=== PATIENT | female | born 1965 | race Caucasian/White ===

== ENCOUNTER 2018-11-28 09:15 | Observation (INO) ==
[2018-11-28 14:00] LABS: Basophils % 0.6 % (0.1-2.0); Eosinophils # 0.5 K/mm3 (0.0-0.4); Eosinophils % 6.1 % (0.1-12.0); Hematocrit 40.6 % (37.0-47.0); Hemoglobin 13.7 g/dL (12.2-16.2); Lymphocytes # 2.6 K/mm3 (0.7-4.5); Lymphocytes % 34.5 % (10-50); Mean Corpuscular HGB Conc 33.8 g/dL (31.8-35.4); Mean Corpuscular Hemoglobin 31.6 pg (27.0-31.2); Mean Corpuscular Volume 93.5 fl (81-99); Monocytes # 0.4 K/mm3 (0.1-1.0); Monocytes % 5.2 % (1.7-9.3); Neutrophils % 53.7 % (37.0-80.0); Platelet Count 204 K/mm3 (142-424); Red Blood Count 4.34 M/mm3 (4.20-5.40); Red Cell Distribution Width 14.1 % (11.5-17.5); White Blood Count 7.4 K/mm3 (4.8-10.8)
[2018-11-28 14:29] LABS: Cholesterol 277 mg/dL (140-200); HDL Cholesterol 46 mg/dL (29-89); LDL Cholesterol 174 mg/dL (0-130); Triglycerides 284 mg/dL (30-200); VLDL Cholesterol 57 mg/dL (0-40)
--- NOTE | 2018-11-28 14:30 | Pharmacy Consult Notes ---
[facility] Pharmacy VTE Monitoring - Patient Demographics Admission date: 11/28/18 Report Date: 11/28/18 Time: 14:30 Allergies/Adverse Reactions: Patient Allergies adenosine Allergy (Mild, Verified 11/28/18 13:18) UNKNOWN amoxicillin [From Augmentin] Allergy (Mild, Verified 11/28/18 13:18) UNKNOWN ciprofloxacin [From Cipro] Allergy (Mild, Verified 11/28/18 13:18) UNKNOWN clarithromycin [From Biaxin] Allergy (Mild, Verified 11/28/18 13:18) UNKNOWN clavulanic acid [From Augmentin] Allergy (Mild, Verified 11/28/18 13:18) UNKNOWN codeine Allergy (Mild, Verified 11/28/18 13:18) UNKNOWN erythromycin base [From Erythrocin] Allergy (Mild, Verified 11/28/18 13:18) UNKNOWN latex Allergy (Mild, Verified 11/28/18 13:18) UNKNOWN Sulfa (Sulfonamide Antibiotics) Allergy (Mild, Verified 11/28/18 13:18) UNKNOWN nitrofurantoin [From Macrobid] Allergy (Unknown, Verified 11/28/18 13:18) UNKNOWN Height: 1.6 m Weight: 115.354 kg - VTE Risk Labs: VTE Related Lab Results Hgb 13.7 g/dL (12.2-16.2) 11/28/18 13:30 Hct 40.6 % (37.0-47.0) 11/28/18 13:30 Plt Count 204 K/mm3 (142-424) 11/28/18 13:30 VTE Score: 4 VTE Risk Level: Low Risk - Prophylaxis VTE Prophylaxis Ordered?: Yes Types of VTE Prophylaxis: TEDS Knee High Location of Applied Device: Bilateral Lower Extremeties - VTE Diagnosis Confirmed Treatment or plan recommended: Continue Current Treatment
[2018-11-28 14:32] LABS: Alanine Aminotransferase 30 U/L (12-78); Albumin Level 3.6 gm/dL (3.4-5.0); Albumin/Globulin Ratio 0.7 (1.1-1.8); Alkaline Phosphatase 101 U/L (46-116); Anion Gap 15.6 mEq/L (5-15); Aspartate Amino Transferase 18 U/L (15-37); Bilirubin,Total 0.3 mg/dL (0.2-1.0); Blood Urea Nitrogen 19 mg/dL (7-18); Calcium 9.4 mg/dL (8.5-10.1); Carbon Dioxide 29 mmol/L (21.0-32.0); Chloride 99 mmol/L (98-107); Creatine Kinase 139 U/L (26-192); Free T4 (Free Thyroxine) 1.03 ng/dl (0.76-1.46); Globulin 4.9 gm/dl (1.3-3.2); Glucose 145 mg/dL (74-106); Potassium 3.6 mmoL/L (3.5-5.1); Sodium 140 mmol/L (136-145); Thyroid Stimulating Hormone 3.82 uIU/ml (0.358-3.740); Total Protein,Serum 8.5 gm/dL (6.4-8.2)
--- NOTE | 2018-11-28 16:58 | History & Physical Report ---
*Admission Date: 11/28/18 *Chief complaint: Chest pain/unstable angina *History of present illness: 53-year-old white female with past history of multiple VT E, IVC placement, pacemaker placement, CHF and coronary disease who presented to an outside hospital yesterday with a chief complaint of worsening chest pain. She was hospitalized and ruled out for myocardial infarction overnight, but because of her history of worsening angina, history of CHF with recent weight gain and worsening chest pain syndrome, she was transferred [facility] so that her cut off machine unloader, Dr. Charles Wilks, could subject her to cardiac angiogram to assess for worsening cardiac disease and ejection fraction. Currently she has complaints of occasional pain when she gets up and walks to the bathroom as well as some muscle cramping. Muscle cramping occurs in her thighs. She has no complaints of orthopnea or paroxysmal nocturnal dyspnea. 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), Transient Ischemic Attacks (TIA) Denies:: Cancer, Diabetes Mellitus Type 1, Diabetes Mellitus Type 2, MRSA *Have you ever received a pneumonia vaccine?: No *Have you received a flu vaccine this season?: No Laterality Cases: Right: Arthroscopy Shoulder, Bilateral: Arthroscopy Knee Other Surgeries: Yes: Angioplasty ([facility]- 2014), Cholecystectomy, Colonoscopy, Dilation and Curettage, EGD, Pacemaker, Sinus Surgery, Tubal Ligation, Other (cholecystectomy, green filter, left shoulder surgery, bladder mesh/sling,) Amputation: No Fractures: No - *Social History Educational Level: Completed College Smoking Status: Current every day smoker Tobacco Type: cigarettes # Packs/Day (cigarettes): 1 Alcohol Intake: never *Occupational Status:: other Housing: house Household Members: spouse *Travel in the last 8 weeks: None - Psychiatric History Expresses thoughts of harming self/others: None Suicide Plan Description: No Plan Family Hx:: Coronary Artery Disease Review of Systems - Review of Systems Review of systems:: pertinent systems reviewed and negative unless documented below - Constitutional Reports weight gain, Denies anorexia, Denies body ache(s), Denies chills, Denies weight loss - Eyes Denies blind spots, Denies blurry vision, Denies change in vision - ENT Denies abnormal hearing, Denies bleeding gums - *Cardiovascular Reports chest pain, Reports chest pain with activity, Reports shortness of breath, Reports shortness of breath with activity, Reports generalized swelling, Denies chest pain at rest, Denies leg pain with activity, Denies irregular heart rhythm - *Respiratory Denies change in phlegm color, Denies chest congestion, Denies cough, Denies excessive phlegm production - *Gastrointestinal Denies abdominal pain - *Genitourinary Denies abnormal periods - *Musculoskeletal Denies abnormal walking, Denies joint pain, Denies limited joint movement - Integumentary/Breasts Denies acne, Denies hair loss - *Neurologic Denies abnormal walking, Denies lack of coordination, Denies loss of vision - Psychiatric Denies abnormal sleep pattern Meds Home Medications Medication Instructions Recorded Confirmed Type albuterol sulfate 0.63 mg/3 mL 1.5 mg INHALATION Q4-6H ml 11/04/17 11/28/18 History solution for nebulization gabapentin 800 mg tablet 800 mg PO QID tab 11/04/17 11/28/18 History levetiracetam 1,000 mg tablet 1,500 mg PO Q12H 11/04/17 11/28/18 History cyanocobalamin (vit B-12) 1,000 1,000 mcg PO DAILY 05/27/18 11/28/18 History mcg tablet ergocalciferol (vitamin D2) 50,000 50,000 unit PO QWEEK 05/27/18 11/28/18 History unit capsule venlafaxine ER 150 mg 150 mg PO DAILY 05/27/18 11/28/18 History capsule,extended release 24 hr Apixaban [Eliquis] 5 mg PO BID 11/28/18 11/28/18 History Famotidine [Acid Body Joiner] 20 mg PO DAILY 11/28/18 11/28/18 History Nebivolol HCl [Bystolic] 5 mg PO QDAY 11/28/18 11/28/18 History Spironolactone 100 mg PO DAILY 11/28/18 11/28/18 History Torsemide 50 mg PO DAILY 11/28/18 11/28/18 History Allergies Allergy/AdvReac Type Severity Reaction Status Date / Time adenosine Allergy Mild UNKNOWN Verified 11/28/18 13:18 amoxicillin [From Augmentin] Allergy Mild UNKNOWN Verified 11/28/18 13:18 ciprofloxacin [From Cipro] Allergy Mild UNKNOWN Verified 11/28/18 13:18 clarithromycin [From Biaxin] Allergy Mild UNKNOWN Verified 11/28/18 13:18 clavulanic acid Allergy Mild UNKNOWN Verified 11/28/18 13:18 [From Augmentin] codeine Allergy Mild UNKNOWN Verified 11/28/18 13:18 erythromycin base Allergy Mild UNKNOWN Verified 11/28/18 13:18 [From Erythrocin] latex Allergy Mild UNKNOWN Verified 11/28/18 13:18 Sulfa (Sulfonamide Allergy Mild UNKNOWN Verified 11/28/18 13:18 Antibiotics) nitrofurantoin Allergy Unknown UNKNOWN Verified 11/28/18 13:18 [From Macrobid] Exam Vital signs and Labs for Last 24 Hours: Temp Pulse Resp BP Pulse Ox 97.8 F 56 L 18 124/75 95 11/28/18 16:00 11/28/18 16:00 11/28/18 16:00 11/28/18 16:00 11/28/18 16:00 Laboratory Results - last 24 hr 11/28/18 13:30: WBC 7.4, RBC 4.34, Hgb 13.7, Hct 40.6, MCV 93.5, MCH 31.6 H, MCHC 33.8, RDW 14.1, Plt Count 204, MPV 8.0, Neut % (Auto) 53.7, Lymph % (Auto) 34.5, [place] % (Auto) 5.2, Eos % (Auto) 6.1, Baso % (Auto) 0.6, Neut # (Auto) 4.0, Lymph # (Auto) 2.6, [place] # (Auto) 0.4, Eos # (Auto) 0.5 H, Baso # (Auto) 0.0 11/28/18 13:30: Sodium 140, Potassium 3.6, Chloride 99, Carbon Dioxide 29, Anion Gap 15.6 H, BUN 19 H, Creatinine 0.91, Estimated Creat Clear 61, Estimated GFR 65, Est GFR ( Amer) 79, Glucose 145 H, Calcium 9.4, Total Bilirubin 0.3, AST 18, ALT 30, Alkaline Phosphatase 101, Total Creatine Kinase 139, CK-MB (CK- 2) 1.0, CK-MB (CK-2) Rel Index 0.7, Troponin I < 0.02, Total Protein 8.5 H, Albumin 3.6, Globulin 4.9 H, Albumin/Globulin Ratio 0.7 L, TSH 3.82 H, Free T4 1.03 11/28/18 13:30: Magnesium 1.8, Troponin I < 0.02, Triglycerides 284 H, Cholesterol 277 H, LDL Cholesterol 174 H, VLDL Cholesterol 57 H, HDL Cholesterol 46, Cholesterol/HDL Ratio 6.0 H 11/28/18 13:30: B-Natriuretic Peptide 16 I & O for Last 24 hours: Intake & Output 11/26/18 11/27/18 11/28/18 11/29/18 11:59 11:59 11:59 11:59 Weight 254 lb 5 oz Microbiology Reports for the Last 24 Hours: Microbiology 11/28/18 13:40 Aspirate - Central Gram Stain - Final Narrative: Patient is morbidly obese. Alert, oriented x3. Very engaged with her medical history. Oropharynx moist and clear. No JVD. Able to move her neck well. No cranial nerve deficits. Lungs have good air movement. Heart rate regular, pacemaker site is normal- appearing. Port-A-Cath site in the right upper chest wall also without evidence of infection. Abdomen soft and nontender. Patient complains of cramping and "charley horses" in the right thigh during the exam but is able to move her extremities well without symmetric neurologic deficits. Trace ankle edema. No cord formation of the calves. Good distal pulses and perfusion. Assessment and Plan (1) Unstable angina Current visit: Yes Status: Acute Category: Medical Code(s): I20.0 - Unstable angina Agree with evaluation for left heart cath given recurrent symptoms (2) Diastolic heart failure Current visit: No Status: Chronic Qualifiers: Heart failure chronicity: acute on chronic Qualified Code(s): I50.33 - Acute on chronic diastolic (congestive) heart failure Category: Medical Code(s): I50.30 - Unspecified diastolic (congestive) heart failure Currently euvolemic. Assess ejection fraction with heart cath (3) History of pulmonary embolus (PE) Current visit: No Status: Chronic Category: Medical Code(s): Z86.711 - Personal history of pulmonary embolism Hold Eliquis. Lovenox injections subcu. (4) Morbid obesity Current visit: No Status: Chronic Category: Medical Code(s): E66.01 - Morbid (severe) obesity due to excess calories Complicates all aspects of her care
[2018-11-29 07:06] LABS: Basophils # 0.1 K/mm3 (0-0.2); Basophils % 0.7 % (0.1-2.0); Eosinophils # 0.5 K/mm3 (0.0-0.4); Eosinophils % 5.2 % (0.1-12.0); Hematocrit 42.7 % (37.0-47.0); Hemoglobin 14.4 g/dL (12.2-16.2); Lymphocytes # 3.1 K/mm3 (0.7-4.5); Lymphocytes % 33.6 % (10-50); Mean Corpuscular HGB Conc 33.9 g/dL (31.8-35.4); Mean Corpuscular Hemoglobin 31.3 pg (27.0-31.2); Mean Corpuscular Volume 92.4 fl (81-99); Mean Platelet Volume 7.9 fl (7.4-10.4); Monocytes # 0.5 K/mm3 (0.1-1.0); Monocytes % 4.9 % (1.7-9.3); Neutrophils # 5.2 K/mm3 (1.8-7.8); Neutrophils % 55.5 % (37.0-80.0); Platelet Count 217 K/mm3 (142-424); Red Blood Count 4.62 M/mm3 (4.20-5.40); Red Cell Distribution Width 14.1 % (11.5-17.5); White Blood Count 9.3 K/mm3 (4.8-10.8)
[2018-11-29 07:08] LABS: Anion Gap 16.6 mEq/L (5-15); Calcium 9.2 mg/dL (8.5-10.1); Potassium 3.6 mmoL/L (3.5-5.1)
--- NOTE | 2018-11-29 08:03 | Progress Note ---
Internal Medicine - PN: Subj *Date: 11/29/18 *Time: 08:01 Interval history: No episodes of chest pain overnight. Some muscle cramping. Exam Vital signs and Labs for Last 24 Hours: Temp Pulse Resp BP Pulse Ox 98.1 F 70 15 111/71 95 11/29/18 07:25 11/29/18 07:25 11/29/18 07:25 11/29/18 07:25 11/29/18 07:25 Laboratory Results - last 24 hr 11/28/18 13:30: WBC 7.4, RBC 4.34, Hgb 13.7, Hct 40.6, MCV 93.5, MCH 31.6 H, MCHC 33.8, RDW 14.1, Plt Count 204, MPV 8.0, Neut % (Auto) 53.7, Lymph % (Auto) 34.5, [place] % (Auto) 5.2, Eos % (Auto) 6.1, Baso % (Auto) 0.6, Neut # (Auto) 4.0, Lymph # (Auto) 2.6, [place] # (Auto) 0.4, Eos # (Auto) 0.5 H, Baso # (Auto) 0.0 11/28/18 13:30: Sodium 140, Potassium 3.6, Chloride 99, Carbon Dioxide 29, Anion Gap 15.6 H, BUN 19 H, Creatinine 0.91, Estimated Creat Clear 61, Estimated GFR 65, Est GFR ( Amer) 79, Glucose 145 H, Calcium 9.4, Total Bilirubin 0.3, AST 18, ALT 30, Alkaline Phosphatase 101, Total Creatine Kinase 139, CK-MB (CK- 2) 1.0, CK-MB (CK-2) Rel Index 0.7, Troponin I < 0.02, Total Protein 8.5 H, Albumin 3.6, Globulin 4.9 H, Albumin/Globulin Ratio 0.7 L, TSH 3.82 H, Free T4 1.03 11/28/18 13:30: Magnesium 1.8, Troponin I < 0.02, Triglycerides 284 H, Cholesterol 277 H, LDL Cholesterol 174 H, VLDL Cholesterol 57 H, HDL Cholesterol 46, Cholesterol/HDL Ratio 6.0 H 11/28/18 13:30: B-Natriuretic Peptide 16 11/28/18 19:15: Troponin I < 0.02 11/29/18 06:45: WBC 9.3 D, RBC 4.62, Hgb 14.4, Hct 42.7, MCV 92.4, MCH 31.3 H, MCHC 33.9, RDW 14.1, Plt Count 217, MPV 7.9, Neut % (Auto) 55.5, Lymph % (Auto) 33.6, [place] % (Auto) 4.9, Eos % (Auto) 5.2, Baso % (Auto) 0.7, Neut # (Auto) 5.2, Lymph # (Auto) 3.1, [place] # (Auto) 0.5, Eos # (Auto) 0.5 H, Baso # (Auto) 0.1 11/29/18 06:45: Sodium 137, Potassium 3.6, Chloride 96 L, Carbon Dioxide 28, Anion Gap 16.6 H, BUN 18, Creatinine 0.93, Estimated Creat Clear 59, Estimated GFR 64, Est GFR ( Amer) 77, Glucose 121 H, Calcium 9.2 I & O for Last 24 hours: Intake & Output 11/26/18 11/27/18 11/28/18 11/29/18 11:59 11:59 11:59 11:59 Intake Total 340 / 340 Balance 340 / 340 Weight 254 lb 5 oz Microbiology Reports for the Last 24 Hours: Microbiology 11/28/18 13:40 Aspirate - Central Gram Stain - Final Narrative: Lungs have good air movement, heart rate regular. Abdomen soft. Patient is alert. Awake. Sitting on the side of the bed brushing her daughter's hair. Assessment and Plan (1) Unstable angina Current visit: Yes Status: Acute Category: Medical Code(s): I20.0 - Unstable angina (2) Diastolic heart failure Current visit: No Status: Chronic Qualifiers: Heart failure chronicity: acute on chronic Qualified Code(s): I50.33 - Acute on chronic diastolic (congestive) heart failure Category: Medical Code(s): I50.30 - Unspecified diastolic (congestive) heart failure (3) History of pulmonary embolus (PE) Current visit: No Status: Chronic Category: Medical Code(s): Z86.711 - Personal history of pulmonary embolism (4) Morbid obesity Current visit: No Status: Chronic Category: Medical Code(s): E66.01 - Morbid (severe) obesity due to excess calories - Assessment and plan all Dx Assessment and Plan for all problems:: Left heart cath today. Probably discharge home and less significant lesions noted.
--- NOTE | 2018-11-29 11:49 | Consult Report ---
History of Present Illness Consult date: 11/29/18 (at 1015) Requesting physician: Garcia Herrera Consult reason: chest pain Chief complaint: Chest pain History of present illness: This is a 53-year-old female who was admitted to the hospital with complaints of chest to an outlying hospital, [facility], for the chest pain. The patient was then transferred here to [facility] for further cardiac workup. 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 The patient has normal coronary arteries. She states that she was having chest pain and because of her worsening angina she went to the hospital. She states that this was a pressure sensation and was occurring at rest and with exertion. She states that it continued to worsen despite her being in [facility]. She has ruled out for an [place]. She has a history of diastolic congestive heart failure so her angina was most l ikely secondary to her CHF and fluid increase. She denies any chest pain or pressure this morning. She states that she is still short of breath and still having edema in her lower extremities. She denies any fever, chills, nausea, vomiting, diarrhea. The patient says that she is having orthopnea but when I walk into the room she is lying flat in bed. 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), Transient Ischemic Attacks (TIA) Denies:: Cancer, Diabetes Mellitus Type 1, Diabetes Mellitus Type 2, MRSA *Have you ever received a pneumonia vaccine?: No *Have you received a flu vaccine this season?: No Laterality Cases: Right: Arthroscopy Shoulder, Bilateral: Arthroscopy Knee Other Surgeries: Yes: Angioplasty ([facility]- 2015), Cholecystectomy, Colonoscopy, D ilation and Curettage, EGD, Pacemaker, Sinus Surgery, Tubal Ligation, Other (cholecystectomy, green filter, left shoulder surgery, bladder mesh/sling,) Amputation: No Fractures: No - *Social History Educational Level: Completed College Smoking Status: Current every day smoker Tobacco Type: cigarettes # Packs/Day (cigarettes): 1 Alcohol Intake: never *Occupational Status:: other Housing: house Household Members: spouse *Travel in the last 8 weeks: None - Psychiatric History Expresses thoughts of harming self/others: None Suicide Plan Description: No Plan Family Hx:: Coronary Artery Disease Meds Home Medications Medication Instructions Recorded Confirmed Type albuterol sulfate 0.63 mg/3 mL 3 ml INHALATION Q4-6H ml 11/04/17 11/29/18 History solution for nebulization gabapentin 800 mg tablet 800 mg PO QID tab 11/04/17 11/28/18 History levetiracetam 1,000 mg tablet 1,500 mg PO BID 11/04/17 11/29/18 History cyanocobalamin (vit B-12) 1,000 1,000 mcg PO DAILY 05/27/18 11/28/18 History mcg tablet ergocalciferol (vitamin D2) 50,000 50,000 unit PO WEEKLY 05/27/18 11/29/18 History unit capsule venlafaxine ER 150 mg 150 mg PO HS 05/27/18 11/29/18 History capsule,extended release 24 hr Apixaban [Eliquis] 5 mg PO BID 11/28/18 11/28/18 History Famotidine [Acid Irrigation Flume Layer] 20 mg PO DAILY 11/28/18 11/28/18 History Nebivolol HCl [Bystolic] 5 mg PO DAILY 11/28/18 11/29/18 History Spironolactone 100 mg PO DAILY 11/28/18 11/28/18 History Torsemide 50 mg PO DAILY 11/28/18 11/28/18 History Allergies Allergy/AdvReac Type Severity Reaction Status Date / Time adenosine Allergy Mild UNKNOWN Verified 11/28/18 13:18 amoxicillin [From Augmentin] Allergy Mild UNKNOWN Verified 11/28/18 13:18 ciprofloxacin [From Cipro] Allergy Mild UNKNOWN Verified 11/28/18 13:18 clarithromycin [From Biaxin] Allergy Mild UNKNOWN Verified 11/28/18 13:18 clavulanic acid Allergy Mild UNKNOWN Verified 11/28/18 13:18 [From Augmentin] codeine Allergy Mild UNKNOWN Verified 11/28/18 13:18 erythromycin base Allergy Mild UNKNOWN Verified 11/28/18 13:18 [From Erythrocin] latex Allergy Mild UNKNOWN Verified 11/28/18 13:18 Sulfa (Sulfonamide Allergy Mild UNKNOWN Verified 11/28/18 13:18 Antibiotics) nitrofurantoin Allergy Unknown UNKNOWN Verified 11/28/18 13:18 [From Macrobid] Review of Systems - Review of Systems Review of systems:: pertinent systems reviewed and negative unless documented below - Constitutional Reports fatigue, Reports lack of energy, Reports weight gain - *Cardiovascular Reports chest pain, Reports chest pain at rest, Reports chest pain with activity, Reports shortness of breath, Reports shortness of breath with activity, Reports leg swelling, Reports shortness of breath when lying down, Reports shortness of breath causing sudden awakening - *Neurologic Denies abnormal walking, Denies abnormal hearing, Denies lack of coordination, Denies loss of vision Exam Vital signs and Labs for Last 24 Hours: Temp Pulse Resp BP Pulse Ox 98.1 F 71 15 111/71 95 11/29/18 07:25 11/29/18 08:00 11/29/18 07:25 11/29/18 07:25 11/29/18 08:00 Laboratory Results - last 24 hr 11/28/18 13:30: WBC 7.4, RBC 4.34, Hgb 13.7, Hct 40.6, MCV 93.5, MCH 31.6 H, MCHC 33.8, RDW 14.1, Plt Count 204, MPV 8.0, Neut % (Auto) 53.7, Lymph % (Auto) 34.5, Motley % (Auto) 5.2, Eos % (Auto) 6.1, Baso % (Auto) 0.6, Neut # (Auto) 4.0, Lymph # (Auto) 2.6, Motley # (Auto) 0.4, Eos # (Auto) 0.5 H, Baso # (Auto) 0.0 11/28/18 13:30: Sodium 140, Potassium 3.6, Chloride 99, Carbon Dioxide 29, Anion Gap 15.6 H, BUN 19 H, Creatinine 0.91, Estimated Creat Clear 61, Estimated GFR 65, Est GFR ( Amer) 79, Glucose 145 H, Calcium 9.4, Total Bilirubin 0.3, AST 18, ALT 30, Alkaline Phosphatase 101, Total Creatine Kinase 139, CK-MB (CK- 2) 1.0, CK-MB (CK-2) Rel Index 0.7, Troponin I < 0.02, Total Protein 8.5 H, Albumin 3.6, Globulin 4.9 H, Albumin/Globulin Ratio 0.7 L, TSH 3.82 H, Free T4 1.03 11/28/18 13:30: Magnesium 1.8, Troponin I < 0.02, Triglycerides 284 H, Cholesterol 277 H, LDL Cholesterol 174 H, VLDL Cholesterol 57 H, HDL Cholesterol 46, Cholesterol/HDL Ratio 6.0 H 11/28/18 13:30: B-Natriuretic Peptide 16 11/28/18 19:15: Troponin I < 0.02 11/29/18 06:45: WBC 9.3 D, RBC 4.62, Hgb 14.4, Hct 42.7, MCV 92.4, MCH 31.3 H, MCHC 33.9, RDW 14.1, Plt Count 217, MPV 7.9, Neut % (Auto) 55.5, Lymph % (Auto) 33.6, Motley % (Auto) 4.9, Eos % (Auto) 5.2, Baso % (Auto) 0.7, Neut # (Auto) 5.2, Lymph # (Auto) 3.1, Motley # (Auto) 0.5, Eos # (Auto) 0.5 H, Baso # (Auto) 0.1 11/29/18 06:45: Sodium 137, Potassium 3.6, Chloride 96 L, Carbon Dioxide 28, Anion Gap 16.6 H, BUN 18, Creatinine 0.93, Estimated Creat Clear 59, Estimated GFR 64, Est GFR ( Amer) 77, Glucose 121 H, Calcium 9.2 I & O for Last 24 hours: Intake & Output 11/26/18 11/27/18 11/28/18 11/29/18 23:59 23:59 23:59 23:59 Intake Total 280 / 280 60 / 60 Balance 280 / 280 60 / 60 Weight 254 lb 5 oz Microbiology Reports for the Last 24 Hours: Microbiology 11/28/18 13:40 Aspirate - Central Gram Stain - Final Narrative: Telemetry strip is sinus rhythm with a rate of 71. - Constitutional no acute distress, morbidly obese - *Routine HEENT Exam Head: Present: normocephalic, atraumatic Eye: Present: EOMI, PERRL ENT: Present: mucous membranes moist - *Routine Neck Exam Present: supple, full ROM. Absent: JVD, carotid bruit, lymphadenopathy - *Routine Respiratory Exam Present: CTA bilaterally - *Routine Cardiovascular Exam Present: RRR, Normal S1, Normal S2. Absent: murmur, gallop - *Routine Abdominal Exam Present: soft, normoactive bowel sounds. Absent: tenderness, distended - *Routine Extremities Exam Present: edema (Trace in the bilateral lower extremities), full ROM, pulses intact. Absent: cyanosis, clubbing - *Routine Skin Exam Present: intact, warm. Absent: erythema, rash - *Routine Neurological Exam Present: alert, oriented X3, CN II-XII intact. Absent: sensory deficit, motor deficit - Routine Psychiatric Exam Present: normal affect, normal thought process - Detailed Eye Exam Eyelids: Left normal inspection Assessment and Plan (1) Angina pectoris Current visit: Yes Status: Acute Category: Medical Code(s): I20.9 - Angina pectoris, unspecified (2) SOB (shortness of breath) Current visit: No Status: Acute Category: Medical Code(s): R06.02 - Shortness of breath (3) Edema Current visit: No Status: Acute Qualifiers: Edema type: localized Qualified Code(s): R60.0 - Localized edema Category: Medical Code(s): R60.9 - Edema, unspecified (4) Diastolic heart failure Current visit: No Status: Chronic Qualifiers: Heart failure chronicity: acute on chronic Qualified Code(s): I50.33 - Acute on chronic diastolic (congestive) heart failure Category: Medical Code(s): I50.30 - Unspecified diastolic (congestive) heart failure (5) History of pulmonary embolus (PE) Current visit: No Status: Chronic Category: Medical Code(s): Z86.711 - Personal history of pulmonary embolism (6) Morbid obesity Current visit: No Status: Chronic Category: Medical Code(s): E66.01 - Morbid (severe) obesity due to excess calories (7) DVT (deep venous thrombosis) Current visit: No Status: Chronic Category: Medical Code(s): I82.409 - Acute embolism and thrombosis of unspecified deep veins of unspecified lower extremity (8) Atrial fibrillation Current visit: No Status: Chronic Category: Medical Code(s): I48.91 - Unspecified atrial fibrillation (9) SHEREE (obstructive sleep apnea) Current visit: No Status: Chronic Category: Medical Code(s): G47.33 - Obstructive sleep apnea (adult) (pediatric) (10) HLD (hyperlipidemia) Current visit: No Status: Chronic Qualifiers: Hyperlipidemia type: other hyperlipidemia Category: Medical Code(s): E78.5 - Hyperlipidemia, unspecified (11) HHD (hypertensive heart disease) Current visit: No Status: Chronic Qualifiers: Heart failure presence: with heart failure Heart failure type: diastolic Heart failure chronicity: acute on chronic Qualified Code(s): I11.0 - Hypertensive heart disease with heart failure; I50.33 - Acute on chronic diastolic (congestive) heart failure Category: Medical Code(s): I11.9 - Hypertensive heart disease without heart failure - Assessment and plan all Dx Assessment and Plan for all problems:: Plan: 1. The patient was admitted to the hospital from [facility] due to angina. The patient has known normal coronary arteries. She has ruled out for an [place]. No plans for invasive cardiac testing at this time. 2. The patient does have diastolic congestive heart failure. She states that she has been short of breath and having edema. Her weight has increased and she states that she feels like at home her torsemide and Aldactone are no longer working for her. The angina that she is experiencing is most likely from her acute on chronic diastolic congestive heart failure and fluid increase. We will give her a dose of Lasix 40 mg IV x1 today. 3. The patient will most likely need to be sent home on Lasix 80 mg p.o. daily in addition to her Aldactone and stop her torsemide. 4. I have had a long discussion with the patient about her fluid intake and only drinking when she is thirsty and trying to keep her fluid intake and salt intake down. I have advised the patient to make sure she is weighing herself daily on a digital scale and recording her daily weights. She is to increase her diuretics if she gains 2 pounds overnight or 5 pounds in a week. The patient verbalizes understanding. 5. Her blood pressure is acceptable. 6. Her LDL goal is less than 100. 7. 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 She has a significant history of PEs and DVTs. She has failed Xarelto in the past. Her insurance would no longer pay for daily Lovenox. She has been on Eliquis and done well on this medication for anticoagulation. She will need to continue this medication for anticoagulation. 8. The patient does have paroxysmal atrial fibrillation. She is on Eliquis for long-term anticoagulation. 9. She is status post permanent pacemaker placement. This is managed in the outpatient clinic. 10. Once the patient has her IV Lasix, she is stable for discharge home today from a cardiovascular standpoint. We do recommend stopping her torsemide and putting her on Lasix 80 mg p.o. daily and continue her current dose of Aldactone. She does need a BMP in 1 week. 11. The patient needs to follow-up in outpatient clinic in 1-2 weeks. Thank you for the opportunity to help participate in the care of this patient.
--- NOTE | 2018-11-29 12:31 | Discharge Summary ---
General - General Admission date:: 11/28/18 Discharge date: 11/29/18 HPI HPI: 53-year-old white female with past history of multiple VT E, IVC placement, pacemaker placement, CHF and coronary disease who presented to an outside hospital yesterday with a chief complaint of worsening chest pain. She was hospitalized and ruled out for myocardial infarction overnight, but because of her history of worsening angina, history of CHF with recent weight gain and worsening chest pain syndrome, she was transferred [facility] so that her artist model, Dr. Charles Wilks, could subject her to cardiac angiogram to assess for worsening cardiac disease and ejection fraction. Currently she has complaints of occasional pain when she gets up and walks to the bathroom as well as some muscle cramping. Muscle cramping occurs in her thighs. She has no complaints of orthopnea or paroxysmal nocturnal dyspnea. Hospital Course Hospital Course: Patient was admitted to hospital. [facility] data were reviewed, labs here were also unremarkable in regards to troponin status. Cardiology consultation was obtained and the following note was procured: Assessment and Plan for all problems:: Plan: 1. The patient was admitted to the hospital from [facility] due to angina. The patient has known normal coronary arteries. She has ruled out for an [place]. No plans for invasive cardiac testing at this time. 2. The patient does have diastolic congestive heart failure. She states that she has been short of breath and having edema. Her weight has increased and she states that she feels like at home her torsemide and Aldactone are no longer working for her. The angina that she is experiencing is most likely from her acute on chronic diastolic congestive heart failure and fluid increase. We will give her a dose of Lasix 40 mg IV x1 today. 3. The patient will most likely need to be sent home on Lasix 80 mg p.o. daily in addition to her Aldactone and stop her torsemide. 4. I have had a long discussion with the patient about her fluid intake and only drinking when she is thirsty and trying to keep her fluid intake and salt intake down. I have advised the patient to make sure she is weighing herself daily on a digital scale and recording her daily weights. She is to increase her diuretics if she gains 2 pounds overnight or 5 pounds in a week. The patient verbalizes understanding. 5. Her blood pressure is acceptable. 6. Her LDL goal is less than 100. 7. 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 She has a significant history of PEs and DVTs. She has failed Xarelto in the past. Her insurance would no longer pay for daily Lovenox. She has been on Eliquis and done well on this medication for anticoagulation. She will need to continue this medication for anticoagulation. 8. The patient does have paroxysmal atrial fibrillation. She is on Eliquis for long-term anticoagulation. 9. She is status post permanent pacemaker placement. This is managed in the outpatient clinic. 10. Once the patient has her IV Lasix, she is stable for discharge home today from a cardiovascular standpoint. We do recommend stopping her torsemide and putting her on Lasix 80 mg p.o. daily and continue her current dose of Aldactone. She does need a BMP in 1 week. 11. The patient needs to follow-up in outpatient clinic in 1-2 weeks. I agree with above plan. Patient will be discharged home with Lasix 80 mg daily in addition to Aldactone. She will follow-up with cardiology clinic in 1 or 2 weeks. Objective Vital signs: Temp Pulse Resp BP Pulse Ox 97.9 F 72 16 111/59 L 94 L 11/29/18 11:44 11/29/18 11:44 11/29/18 11:44 11/29/18 11:44 11/29/18 11:44 Narrative: Morbid obesity limits exam but patient is pleasant, talkative, no JVD. Lungs clear, heart rate regular. Abdomen soft and nontender. Trace ankle edema. Neurologic exam intact Results Labs on day of discharge: Labs from last 24 hours 11/29/18 11/29/18 11/28/18 06:45 06:45 19:15 WBC 9.3 D RBC 4.62 Hgb 14.4 Hct 42.7 MCV 92.4 MCH 31.3 H MCHC 33.9 RDW 14.1 Plt Count 217 MPV 7.9 Neut % (Auto) 55.5 Lymph % (Auto) 33.6 Trigg % (Auto) 4.9 Eos % (Auto) 5.2 Baso % (Auto) 0.7 Neut # (Auto) 5.2 Lymph # (Auto) 3.1 Trigg # (Auto) 0.5 Eos # (Auto) 0.5 H Baso # (Auto) 0.1 Sodium 137 Potassium 3.6 Chloride 96 L Carbon Dioxide 28 Anion Gap 16.6 H BUN 18 Creatinine 0.93 Estimated Creat Clear 59 Estimated GFR 64 Est GFR ( Amer) 77 Glucose 121 H Calcium 9.2 Magnesium Total Bilirubin AST ALT Alkaline Phosphatase Total Creatine Kinase CK-MB (CK-2) CK-MB (CK-2) Rel Index Troponin I < 0.02 B-Natriuretic Peptide Total Protein Albumin Globulin Albumin/Globulin Ratio Triglycerides Cholesterol LDL Cholesterol VLDL Cholesterol HDL Cholesterol Cholesterol/HDL Ratio TSH Free T4 11/28/18 11/28/18 11/28/18 13:30 13:30 13:30 WBC RBC Hgb Hct MCV MCH MCHC RDW Plt Count MPV Neut % (Auto) Lymph % (Auto) Trigg % (Auto) Eos % (Auto) Baso % (Auto) Neut # (Auto) Lymph # (Auto) Trigg # (Auto) Eos # (Auto) Baso # (Auto) Sodium 140 Potassium 3.6 Chloride 99 Carbon Dioxide 29 Anion Gap 15.6 H BUN 19 H Creatinine 0.91 Estimated Creat Clear 61 Estimated GFR 65 Est GFR ( Amer) 79 Glucose 145 H Calcium 9.4 Magnesium 1.8 Total Bilirubin 0.3 AST 18 ALT 30 Alkaline Phosphatase 101 Total Creatine Kinase 139 CK-MB (CK-2) 1.0 CK-MB (CK-2) Rel Index 0.7 Troponin I < 0.02 < 0.02 B-Natriuretic Peptide 16 Total Protein 8.5 H Albumin 3.6 Globulin 4.9 H Albumin/Globulin Ratio 0.7 L Triglycerides 284 H Cholesterol 277 H LDL Cholesterol 174 H VLDL Cholesterol 57 H HDL Cholesterol 46 Cholesterol/HDL Ratio 6.0 H TSH 3.82 H Free T4 1.03 11/28/18 13:30 WBC 7.4 RBC 4.34 Hgb 13.7 Hct 40.6 MCV 93.5 MCH 31.6 H MCHC 33.8 RDW 14.1 Plt Count 204 MPV 8.0 Neut % (Auto) 53.7 Lymph % (Auto) 34.5 Trigg % (Auto) 5.2 Eos % (Auto) 6.1 Baso % (Auto) 0.6 Neut # (Auto) 4.0 Lymph # (Auto) 2.6 Trigg # (Auto) 0.4 Eos # (Auto) 0.5 H Baso # (Auto) 0.0 Sodium Potassium Chloride Carbon Dioxide Anion Gap BUN Creatinine Estimated Creat Clear Estimated GFR Est GFR ( Amer) Glucose Calcium Magnesium Total Bilirubin AST ALT Alkaline Phosphatase Total Creatine Kinase CK-MB (CK-2) CK-MB (CK-2) Rel Index Troponin I B-Natriuretic Peptide Total Protein Albumin Globulin Albumin/Globulin Ratio Triglycerides Cholesterol LDL Cholesterol VLDL Cholesterol HDL Cholesterol Cholesterol/HDL Ratio TSH Free T4 DS: Diagnosis - Discharge Diagnosis (1) Angina pectoris Status: Resolved (2) SOB (shortness of breath) Status: Resolved (3) Edema Status: Chronic (4) Diastolic heart failure Status: Chronic (5) History of pulmonary embolus (PE) Status: Chronic (6) Morbid obesity Status: Chronic (7) DVT (deep venous thrombosis) Status: Chronic (8) Atrial fibrillation Status: Chronic (9) SHEREE (obstructive sleep apnea) Status: Chronic (10) HLD (hyperlipidemia) Status: Chronic (11) HHD (hypertensive heart disease) Status: Chronic Discharge Plan - Patient Discharge Instructions ACTIVITY: Continue current activity DIET: continue same diet Patient Instructions: DI for Angina - Follow up Plan Follow up with: Charles Wilks MD [Staff Physician] - 1 week Disposition: Home, Self-Usp Medications: Home Medications Medication Instructions Recorded Confirmed Type albuterol sulfate 0.63 mg/3 mL 3 ml INHALATION Q4-6H ml 11/04/17 11/29/18 History solution for nebulization gabapentin 800 mg tablet 800 mg PO QID tab 11/04/17 11/28/18 History levetiracetam 1,000 mg tablet 1,500 mg PO BID 11/04/17 11/29/18 History cyanocobalamin (vit B-12) 1,000 1,000 mcg PO DAILY 05/27/18 11/28/18 History mcg tablet ergocalciferol (vitamin D2) 50,000 50,000 unit PO WEEKLY 05/27/18 11/29/18 History unit capsule venlafaxine ER 150 mg 150 mg PO HS 05/27/18 11/29/18 History capsule,extended release 24 hr Apixaban [Eliquis] 5 mg PO BID 11/28/18 11/28/18 History Famotidine [Acid Storage Engineer] 20 mg PO DAILY 11/28/18 11/28/18 History Nebivolol HCl [Bystolic] 5 mg PO DAILY 11/28/18 11/29/18 History Spironolactone 100 mg PO DAILY 11/28/18 11/28/18 History Torsemide 50 mg PO DAILY 11/28/18 11/28/18 History Furosemide [Lasix 80mg tab] 80 mg PO DAILY #30 tab 11/29/18 Rx Prescriptions/Medication Reconciliation: New Furosemide [Lasix 80mg tab] 80 mg PO DAILY #30 tab Continue albuterol sulfate 0.63 mg/3 mL solution for nebulization 3 ml INHALATION Q4- 6H ml gabapentin 800 mg tablet 800 mg PO QID tab levetiracetam 1,000 mg tablet 1,500 mg PO BID venlafaxine ER 150 mg capsule,extended release 24 hr 150 mg PO HS cyanocobalamin (vit B-12) 1,000 mcg tablet 1,000 mcg PO DAILY ergocalciferol (vitamin D2) 50,000 unit capsule 50,000 unit PO WEEKLY Spironolactone 100 mg PO DAILY Famotidine [Acid Storage Engineer] 20 mg PO DAILY Apixaban [Eliquis] 5 mg PO BID Nebivolol HCl [Bystolic] 5 mg PO DAILY Discontinued Torsemide 50 mg PO DAILY
== END 2018-11-29 13:09 | disposition home or self-care (01) ==
LOC: 2ND
PROVIDERS: ADMIT Internal Medicine Adolescent Medicine; ATTEND Internal Medicine Adolescent Medicine
DX: I11.0 Hypertensive heart disease with heart failure; Z79.01 Long term (current) use of anticoagulants; Z68.42 Body mass index [BMI] 45.0-49.9, adult; D68.8 Other specified coagulation defects; I20.0 Unstable angina; I48.0 Paroxysmal atrial fibrillation; E66.01 Morbid (severe) obesity due to excess calories; Z91.040 Latex allergy status; Z95.0 Presence of cardiac pacemaker; E78.5 Hyperlipidemia, unspecified; G47.33 Obstructive sleep apnea (adult) (pediatric); Z79.899 Other long term (current) drug therapy; Z72.0 Tobacco use; Z88.6 Allergy status to analgesic agent; R60.0 Localized edema; Z88.2 Allergy status to sulfonamides; Z86.711 Personal history of pulmonary embolism; Z88.8 Allergy status to other drugs, medicaments and biological substances; Z86.73 Personal history of transient ischemic attack (TIA), and cerebral infarction without residual deficits; I50.33 Acute on chronic diastolic (congestive) heart failure; I82.409 Acute embolism and thrombosis of unspecified deep veins of unspecified lower extremity
CPT/HCPCS: 80048; 80053; 80061; 82550; 82553; 83735; 83880; 84439; 84443; 84484; 85025; 87070; 87205; 88305; 93005; G0378